=== PATIENT | male | born 1955 | race Caucasian/White ===

== ENCOUNTER 2017-10-08 14:36 | Outpatient (CLI) | payer MEDICARE, BC, OTHER ==
[2017-10-08 13:08] LABS: BASOPHILS % (AUTO) 0.7 %; EOSINOPHILS # (AUTO) 0.1 10^3/uL (0.0-0.7); EOSINOPHILS % (AUTO) 1.3 %; HCT - HEMATOCRIT 41.2 % (42.0-52.0); HGB - HEMOGLOBIN 14.1 g/dL (14.0-18.0); LYMPHOCYTES # (AUTO) 2.9 10^3/uL (1.5-3.5); LYMPHOCYTES % (AUTO) 46.4 %; MEAN CORPUSCULAR HEMOGLOBIN 31.6 pg (27.0-31.0); MEAN CORPUSCULAR HGB CONC 34.2 g/dL (32.0-36.0); MEAN CORPUSCULAR VOLUME 92.5 fL (80.0-94.0); MEAN PLATELET VOLUME 7.6 fL (7.4-11.4); MONOCYTES # (AUTO) 0.7 10^3/uL (0.0-1.0); MONOCYTES % (AUTO) 10.6 %; NEUTROPHILS # (AUTO) 2.6 10^3/uL (1.5-6.6); RED BLOOD COUNT 4.45 10^6/uL (4.70-6.10); RED CELL DISTRIBUTION WIDTH 12.5 % (12.0-15.0); UNCORRECTED WHITE BLOOD COUNT 6.3 x10^3/uL; WHITE BLOOD COUNT 6.3 x10^3/uL (4.8-10.8)
[2017-10-08 13:23] LABS: ALBUMIN/GLOBULIN RATIO 1.3 (1.0-2.2); BILIRUBIN,TOTAL 0.6 mg/dL (0.2-1.0); BUN - BLOOD UREA NITROGEN 15 mg/dL (6-20); CALCIUM 9.4 mg/dL (8.5-10.3); CARBON DIOXIDE - CO2 29 mmol/L (21-32); CHLORIDE 97 mmol/L (101-111); CHOL/HDL RATIO 4.3 (<5.0); CHOLESTEROL 258 mg/dL; CREATININE 0.8 mg/dL (0.6-1.2); GFR - MDRD 98 (>89); GLUCOSE 93 mg/dL (70-100); HDL CHOLESTEROL 60 mg/dL; LDL/HDL RATIO 2.8 (<3.6); POTASSIUM 4.1 mmol/L (3.5-5.0); SODIUM 138 mmol/L (135-145); TOTAL PROTEIN 7.6 g/dL (6.7-8.2); TRIGLYCERIDES 143 mg/dL; VLDL CHOLESTEROL 29 mg/dL
[2017-10-08 13:38] LABS: HEMOGLOBIN A1C 0.62 g/dL
== END 2017-10-08 14:37 | disposition home or self-care (01) ==
LOC: LAB.R 14:36
PROVIDERS: ATTEND Internal Medicine
DX: Z00.00 Encounter for general adult medical examination without abnormal findings (principal); R73.9 Hyperglycemia, unspecified; K21.9 Gastro-esophageal reflux disease without esophagitis; I10 Essential (primary) hypertension; E78.5 Hyperlipidemia, unspecified; Z79.899 Other long term (current) drug therapy; Z12.5 Encounter for screening for malignant neoplasm of prostate; Z72.89 Other problems related to lifestyle
CPT/HCPCS: 80053; 80061; 83036; 83721; 85025; 86803; G0103; 84153

== ENCOUNTER 2018-01-12 08:50 | Outpatient (CLI) | payer MEDICARE, BC, OTHER ==
[2018-01-12 13:41] LABS: ALT ALANINE AMINOTRANSFERASE 23 IU/L (10-60); AST ASPARTATE AMINOTRANSFERASE 19 IU/L (10-42); LDL CHOLESTEROL,DIRECT 86 mg/dL
== END 2018-01-12 08:51 | disposition home or self-care (01) ==
LOC: LAB.R 08:50
PROVIDERS: ATTEND Internal Medicine
DX: E78.5 Hyperlipidemia, unspecified (principal)
CPT/HCPCS: 83721; 84450; 84460

== ENCOUNTER 2018-10-28 13:51 | Outpatient (CLI) | payer MEDICARE, BC ==
--- NOTE | 2018-10-28 15:20 | XRAY Report ---
Reason: Right Hip Joint Pain, Trauma Procedure Date: 10/28/2018 Accession Number: [id number] / [id number] Procedure: XR - Femur 2V RT CPT Code: FULL RESULT: EXAM: RIGHT FEMUR RADIOGRAPHY EXAM DATE: 10/28/2018 02:34 PM. CLINICAL HISTORY: Right hip joint pain, trauma. COMPARISON: None. TECHNIQUE: 2 views. FINDINGS: Bones: Normal. No fracture or bone lesion. Joints: The visualized hip and knee joints are normal. No effusions. Soft Tissues: Normal. No soft tissue swelling. IMPRESSION: No fracture or dislocation. RADIA
--- NOTE | 2018-10-28 15:20 | XRAY Report ---
Reason: HIP JOINT PAIN,RIGHT Procedure Date: 10/28/2018 Accession Number: [id number] / [id number] Procedure: XR - Hip w/Pelvis 2-3V RT CPT Code: FULL RESULT: EXAM: RIGHT HIP AND PELVIS RADIOGRAPHY EXAM DATE: 10/28/2018 02:34 PM. HISTORY: Hip joint pain, right. Trauma. COMPARISONS: None. TECHNIQUE: 1 view of the pelvis and 1 view of the hip. FINDINGS: Bones: Normal. No fracture or bone lesion. Joints: The bilateral hip, pubis symphysis, and sacroiliac joints are preserved. Soft Tissues: Normal. No soft tissue swelling. IMPRESSION: No fracture or dislocation is identified. RADIA
== END 2018-10-28 13:52 | disposition home or self-care (01) ==
LOC: DI 13:51
PROVIDERS: ATTEND Physician Assistant Medical
DX: M25.551 Pain in right hip (principal)

== ENCOUNTER 2018-10-31 12:33 | Emergency (ER) | payer MEDICARE, BC, OTHER ==
[2018-10-31 12:41] VITALS: BP 164/102
--- NOTE | 2018-10-31 14:22 | ED Physician Documentation ---
History of Present Illness - Stated complaint Stated Complaint: RT HIP PX/GLF - Chief complaint Chief Complaint: Back Pain - Additonal information Additional information: hx from pt 63 male rtripped and fell and hit right hip on table approx 5 days ago has seen PMD and xrays were neg but pain is still severe and he cannot walk did not hit head no head neck chest abd pain Review of Systems Cardiac: denies: Chest pain / pressure GI: denies: Abdominal Pain Musculoskeletal: reports: Extremity pain, Joint pain (R hip lat and posterior). denies: Neck pain Neurologic: denies: Headache Endocrine: denies: Easy bruising / bleeding Immunocompromised: denies: Immunocompromised PD PAST MEDICAL HISTORY - Past Medical History Past Medical History: Yes Cardiovascular: Hypertension, High cholesterol Respiratory: None Endocrine/Autoimmune: None GI: Colon polyps : None HEENT: None Psych: Post traumatic stress disorder Musculoskeletal: Osteoarthritis, Chronic back pain, Other Derm: None - Past Surgical History General: Colonoscopy - Present Medications Home Medications: Ambulatory Orders Medication Instructions Recorded Confirmed Aspirin [Aspir 81] 81 mg PO DAILY 06/03/14 10/31/18 DULoxetine [Cymbalta] 60 mg PO DAILY 06/03/14 10/31/18 Lisinopril 10 mg PO DAILY 06/03/14 10/31/18 Meclizine HCl 25 mg ORAL DAILY PRN 06/03/14 10/31/18 Omeprazole 20 mg PO DAILY 06/03/14 10/31/18 Simvastatin 10 mg PO DAILY 06/03/14 10/31/18 Indomethacin [Indocin] 25 mg PO BIDWM PRN #14 capsule 10/31/18 Lidocaine Patch 5% [Lidoderm Patch] 1 patch TOP DAILY PRN #10 patch 10/31/18 - Allergies Allergies/Adverse Reactions: Allergies Allergy/AdvReac Type Severity Reaction Status Date / Time No Known Drug Allergies Allergy Verified 10/31/18 12:41 - Social History Does the pt smoke?: No Smoking Status: Never smoker PD ED PE NORMAL - Vitals Vital signs reviewed: Yes - HEENT HEENT: Atraumatic - Neck Neck: No bony TTP - Cardiac Cardiac: RRR - Respiratory Respiratory: No respiratory distress - Abdomen Abdomen: Non tender - Derm Derm: Normal color - Extremities Extremities: Other (TTP lateral hip and STS no ecchymosis able int int ext rotate but pain with flexion and ext, MSV intact) - Neuro Neuro: Alert and oriented X 3 Eye Opening: Spontaneous Motor: Obeys Commands Verbal: Oriented GCS Score: 15 Results - Vitals Vitals: Vital Signs - 24 hr 10/31/18 12:39 Temperature 36.2 C L Heart Rate 77 Respiratory 20 Rate Blood Pressure 164/102 H O2 Saturation 100 Oxygen O2 Source Room air - Rads (name of study) CT pelvis Radiology: See rad report (neg for fx) PD MEDICAL DECISION MAKING - ED course ED course: xray by PMD neg will CT Departure - Departure Disposition: Home, Self Care Clinical Impression: Contusion, hip Qualifiers: Encounter type: initial encounter Laterality: right Qualified Code(s): S70.01XA - Contusion of right hip, initial encounter Condition: Good Instructions: ED Contusion Hip Follow-Up: Abdiel Connor MD [Primary Care Provider] - Prescriptions: Indomethacin [Indocin] 25 mg PO BIDWM PRN #14 capsule PRN Reason: pain and inflammation Lidocaine Patch 5% [Lidoderm Patch] 1 patch TOP DAILY PRN #10 patch PRN Reason: pain Comments: Thankfully the CT scan does not show any bony injury The pain is either from a soft tissue contusion or perhaps the fall inflamed the bursae that overlies the joint. Either way I recommend indocin for inflammation and pain as well as lidocaine patches applied to the most painful spot for up to 12 hr a day. Ice wrapped in a towel and applied for up to 20 minutes at time may help as well. The pain should gradually improve over the next 2 weeks. Forms: Activity restrictions
--- NOTE | 2018-10-31 16:52 | CT Report ---
Reason: fall right hip pain neg xray Procedure Date: 10/31/2018 Accession Number: [id number] / [id number] Procedure: CT - Pelvis W/O CPT Code: FULL RESULT: EXAM: CT BONY PELVIS WITHOUT CONTRAST EXAM DATE: 10/31/2018 03:46 PM. CLINICAL HISTORY: Fall right hip pain neg xray. COMPARISON: 10/28/2018. TECHNIQUE: Thin-section axial images were acquired of the pelvis without contrast. Post-processing: Coronal and sagittal reformats. Other: None. In accordance with CT protocol optimization, one or more of the following dose reduction techniques were utilized for this exam: automated exposure control, adjustment of mA and/or KV based on patient size, or use of iterative reconstructive technique. FINDINGS: Bones: No acute fracture. No bone lesion. Mild enthesopathy at the greater trochanter. Sacroiliac Joints: Unremarkable. Joints: No dislocation. There is mild osteophyte formation of the hip joints bilaterally. Moderate lower lumbar disk degeneration. Pelvic Cavity: Unremarkable. Other: Small bilateral fat-containing inguinal hernias. IMPRESSION: No acute fracture. RADIA
[2018-10-31] MEDS ORDERED: INDOMETHACIN 25 MG CAPSULE PO STA (17:05)
[2018-10-31] MEDS ORDERED: LIDOCAINE PATCH 5% TOP STA (17:05)
== END 2018-10-31 17:21 | disposition home or self-care (01) ==
LOC: ED 12:33
DX: S70.01XA Contusion of right hip, initial encounter (principal); W01.190A Fall on same level from slipping, tripping and stumbling with subsequent striking against furniture, initial encounter; I10 Essential (primary) hypertension; E78.00 Pure hypercholesterolemia, unspecified; Z79.82 Long term (current) use of aspirin
CPT/HCPCS: 72192; 99283; A9270

== ENCOUNTER 2019-05-24 | Outpatient (CLI) | payer MEDICARE, BC | END 2019-05-24 09:54 | disposition home or self-care (01) ==

== ENCOUNTER 2020-11-03 11:01 | Outpatient (CLI) | payer MEDICARE, BC ==
--- NOTE | 2020-11-04 10:47 | Ultrasound Report ---
PROCEDURE: Testicle INDICATIONS: RT SCROTAL SWELLING W/ HYDROCELE TECHNIQUE: Real-time scanning was performed of the scrotum and testicles, with image documentation. Color and p ulse Doppler interrogation was performed of both testicles. COMPARISON: Correlation is made with overlapping portions of pelvis CT 10/31/2018. FINDINGS: Right: Testicle is normal in size at 5.1 x 3.2 x 3.3 cm, and demonstrates a cluster of intratesticul ar cysts, which measure up to 2.3 cm, and measured together. Epididymis is normal in overall size a nd demonstrates a cluster of epididymal cysts that measure up to 9 mm. There is a prominent right-si ded hydrocele which measures 7.8 x 4.2 x 5.5 cm. Overlying scrotal skin is normal in thickness. Left: Testicle is normal in size at 4.3 x 2.9 x 3.1 cm, and homogeneous in echotexture. Epididymis is normal in overall size. Epididymal cysts are seen, which measure up to 5 mm. There is a small left -sided hydrocele. Overlying scrotal skin is normal in thickness. Doppler: Color and pulse Doppler demonstrate normal and symmetric arterial flow in both testicles. No left-sided varicocele is seen. Investigation for a right varicocele was not obtained, secondary to the large right-sided hydrocele. IMPRESSION: Right-sided intratesticular cysts are seen. Prominent right-sided hydrocele. Small left-sided hydrocele. On the prior CT, bilateral fat-containing inguinal hernias can be seen. These are not investigated on the current study. Reviewed by: Livan Choudhury MD on 11/04/2020 9:46 AM [facility] Approved by: Livan Choudhury MD on 11/04/2020 9:46 AM [facility] Station ID: [id number]
== END 2020-11-03 11:02 | disposition home or self-care (01) ==
LOC: DI 11:01
PROVIDERS: ATTEND Internal Medicine
DX: N44.2 Benign cyst of testis (principal); N43.3 Hydrocele, unspecified

== ENCOUNTER 2020-11-07 08:00 | Outpatient (CLI) | payer MEDICARE, BC ==
[2020-11-07 09:46] LABS: BASOPHILS % (AUTO) 0.5 %; EOSINOPHILS # (AUTO) 0.1 10^3/uL (0.0-0.7); EOSINOPHILS % (AUTO) 1.4 %; HGB - HEMOGLOBIN 14.1 g/dL (14.0-18.0); LYMPHOCYTES # (AUTO) 2.9 10^3/uL (1.5-3.5); LYMPHOCYTES % (AUTO) 46.3 %; MEAN CORPUSCULAR HEMOGLOBIN 31.6 pg (27.0-31.0); MEAN CORPUSCULAR VOLUME 95.7 fL (80.0-94.0); MEAN PLATELET VOLUME 8.7 fL (7.4-11.4); MONOCYTES # (AUTO) 0.7 10^3/uL (0.0-1.0); MONOCYTES % (AUTO) 10.3 %; NEUTROPHILS # (AUTO) 2.6 10^3/uL (1.5-6.6); NEUTROPHILS % (AUTO) 41.5 %; PLT - PLATELET COUNT 332 10^3/uL (130-450); RED BLOOD COUNT 4.46 10^6/uL (4.70-6.10); RED CELL DISTRIBUTION WIDTH 11.9 % (12.0-15.0); WHITE BLOOD COUNT 6.3 x10^3/uL (4.8-10.8)
[2020-11-07 10:04] LABS: ALBUMIN 4.3 g/dL (3.2-5.5); ALBUMIN/GLOBULIN RATIO 1.4 (1.0-2.2); ALKALINE PHOSPHATASE 65 IU/L (42-121); ALT ALANINE AMINOTRANSFERASE 27 IU/L (10-60); AST ASPARTATE AMINOTRANSFERASE 24 IU/L (10-42); BILIRUBIN,TOTAL 1.3 mg/dL (0.2-1.0); BUN - BLOOD UREA NITROGEN 22 mg/dL (6-20); CALCIUM 9.6 mg/dL (8.5-10.3); CARBON DIOXIDE - CO2 27 mmol/L (21-32); CHLORIDE 98 mmol/L (101-111); CHOL/HDL RATIO 3.3 (<5.0); CHOLESTEROL 213 mg/dL; CREATININE 0.9 mg/dL (0.6-1.2); GLUCOSE 120 mg/dL (70-100); HDL CHOLESTEROL 65 mg/dL; LDL CHOLESTEROL,CALCULATED 126 mg/dL; LDL/HDL RATIO 1.9 (<3.6); TOTAL PROTEIN 7.4 g/dL (6.7-8.2); VLDL CHOLESTEROL 22 mg/dL
[2020-11-07 10:22] LABS: CREATININE,URINE 124.5 mg/dL
[2020-11-07 10:24] LABS: MICROALBUMIN,URINE < 0.2 mg/dL (0-300.0)
[2020-11-07 13:37] LABS: HEMOGLOBIN A1c% 6.1 % (4.27-6.07)
== END 2020-11-07 23:59 | disposition home or self-care (01) ==
LOC: LAB 08:00
PROVIDERS: ATTEND Internal Medicine
DX: I10 Essential (primary) hypertension (principal); R73.01 Impaired fasting glucose; Z12.5 Encounter for screening for malignant neoplasm of prostate
CPT/HCPCS: 36415; 80053; 80061; 82043; 82570; 83036; 84443; 85025; G0103; 83721; 84153

== ENCOUNTER 2020-11-29 09:38 | Emergency (ER) | payer BC, MEDICARE, OTHER ==
[2020-11-29] MEDS ORDERED: KETOROLAC 60 MG/2 ML VIAL IM STA (10:57)
--- NOTE | 2020-11-29 11:02 | ED Physician Documentation ---
History of Present Illness - Stated complaint Stated Complaint: BACK PX - Chief complaint Chief Complaint: Ext Problem - History obtained from History obtained from: Patient - Additonal information Additional information: Pt comes to the ED with CC of R lower back pain, radiating down his leg, after doing some heavy work a few days ago. Pt states he was sawing large logs, and that he is right-side dominant, so his R side took the brunt of the pressure. He noticed some soreness in his R lower back and buttock later that day, and this has gotten worse over the past few days. Pt states this has happened before. He states he talked with his doctor, who recommended he come in and get a shot of Toradol. Pt denies numbness or tingling. No weakness. No loss of bowel or bladder control. Review of Systems Ten Systems: 10 systems reviewed and negative Constitutional: reports: Reviewed and negative Eyes: reports: Reviewed and negative Ears: reports: Reviewed and negative Nose: reports: Reviewed and negative Throat: reports: Reviewed and negative Cardiac: reports: Reviewed and negative Respiratory: reports: Reviewed and negative GI: reports: Reviewed and negative : reports: Reviewed and negative Skin: reports: Reviewed and negative Musculoskeletal: reports: Back pain, Extremity pain Neurologic: reports: Reviewed and negative Psychiatric: reports: Reviewed and negative Endocrine: reports: Reviewed and negative Immunocompromised: reports: Reviewed and negative PD PAST MEDICAL HISTORY - Past Medical History Cardiovascular: Hypertension, High cholesterol Respiratory: None Endocrine/Autoimmune: None GI: Colon polyps : None HEENT: None Psych: Post traumatic stress disorder Musculoskeletal: Osteoarthritis, Chronic back pain, Other Derm: None - Past Surgical History Past Surgical History: Yes General: Colonoscopy - Present Medications Home Medications: Ambulatory Orders Medication Instructions Recorded Confirmed Aspirin [Aspir 81] 81 mg PO DAILY 06/03/14 11/29/20 DULoxetine [Cymbalta] 60 mg PO DAILY 06/03/14 11/29/20 Lisinopril 10 mg PO DAILY 06/03/14 11/29/20 Meclizine HCl 25 mg ORAL DAILY PRN 06/03/14 11/29/20 Omeprazole 20 mg PO DAILY 06/03/14 11/29/20 Simvastatin 10 mg PO DAILY 06/03/14 11/29/20 Lidocaine Patch 5% [Lidoderm Patch] 1 patch TOP DAILY PRN #10 patch 10/31/18 Cyclobenzaprine [Flexeril] 10 mg PO TID PRN #20 tab 11/29/20 HYDROcod/ACETAM 5/325 [Cresson 5/325] 1 - 2 ea PO Q6H PRN #15 11/29/20 Ibuprofen [Motrin] 800 mg PO Q8H PRN #30 tab 11/29/20 - Allergies Allergies/Adverse Reactions: Allergies Allergy/AdvReac Type Severity Reaction Status Date / Time No Known Drug Allergies Allergy Verified 10/31/18 12:41 - Social History Does the pt smoke?: No Smoking Status: Current some day smoker Does the pt drink ETOH?: Yes Does the pt have substance abuse?: No - Immunizations Immunizations are current?: Yes PD ED PE NORMAL - Vitals Vital signs reviewed: Yes - General General: Alert and oriented X 3, No acute distress - HEENT HEENT: Atraumatic, PERRL, EOMI, Moist mucous membranes - Neck Neck: Supple, no meningeal sign - Cardiac Cardiac: RRR, No murmur, Strong equal pulses - Respiratory Respiratory: No respiratory distress, Clear bilaterally - Abdomen Abdomen: Soft, Non tender, Non distended - Back Back: No CVA TTP, No spinal TTP, Other (mild tenderness R SI joint area.) - Derm Derm: Warm and dry - Extremities Extremities: No deformity, No tenderness to palpate, No edema - Neuro Neuro: Alert and oriented X 3 - Psych Psych: Normal mood, Normal affect Results - Vitals Vitals: Oxygen O2 Source Room air PD MEDICAL DECISION MAKING - ED course Complexity details: considered differential, d/w patient ED course: PT did not have any signs or symptoms of emergent back pain. He was treated with a dose of Toradol in the ED, and I have prescribed him medication as an outpatient for symptomatic control. We have discussed the need for follow up with PCP to discuss MRI if he is not doing any better after 2 weeks. Departure - Departure Disposition: 01 Home, Self Care Clinical Impression: Acute myofascial strain of lumbar region Qualifiers: Encounter type: initial encounter Qualified Code(s): S39.012A - Strain of muscle, fascia and tendon of lower back, initial encounter Sciatica Qualifiers: Laterality: right Qualified Code(s): M54.31 - Sciatica, right side Condition: Stable Instructions: ED Exercises Lumbar Muscles, ED Sprain Strain Lumbar Prescriptions: Cyclobenzaprine [Flexeril] 10 mg PO TID PRN #20 tab PRN Reason: Spasms Ibuprofen [Motrin] 800 mg PO Q8H PRN #30 tab PRN Reason: PAIN &/OR FEVER HYDROcod/ACETAM 5/325 [Cresson 5/325] 1 - 2 ea PO Q6H PRN #15 PRN Reason: Pain Discharge Date/Time: 11/29/20 11:21
[2020-11-29 11:21] VITALS: BP 148/92
== END 2020-11-29 11:21 | disposition home or self-care (01) ==
LOC: ED 09:38
DX: S39.012A Strain of muscle, fascia and tendon of lower back, initial encounter (principal); X50.9XXA Other and unspecified overexertion or strenuous movements or postures, initial encounter; Y93.89 Activity, other specified; M54.31 Sciatica, right side; I10 Essential (primary) hypertension; Z79.82 Long term (current) use of aspirin
CPT/HCPCS: 96372; 99283; 99284

== ENCOUNTER 2021-01-11 08:01 | Outpatient (CLI) | payer OTHER ==
--- NOTE | 2021-01-11 08:59 | Ultrasound Report ---
PROCEDURE: Aorta Screening INDICATIONS: CHRONIC CIGAR USE TECHNIQUE: Real time scanning was performed of the aorta and iliac arteries, with image documentatio n. COMPARISON: None. FINDINGS: Aorta: Proximal aortic diameter measures 3.0 x 2.9 cm. Mid-aorta measures 2.1 x 2.0 cm. Distal aor tic diameter is 1.9 x 1.7 cm. Iliac arteries: Right common iliac artery measures 1.4 x 1.4 cm. Left common iliac artery measures 1.3 x 1.4 cm. 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 Per consensus criteria, recommend follow-up imaging in 3 years. Reviewed by: Yo Arce MD on 01/11/2021 8:58 AM PDT Approved by: Yo Arce MD on 01/11/2021 8:58 AM PDT Station ID: [id number]
== END 2021-01-11 08:02 | disposition home or self-care (01) ==
LOC: DI 08:01
PROVIDERS: ATTEND Nurse Practitioner
DX: I77.811 Abdominal aortic ectasia (principal)

== ENCOUNTER 2021-10-29 10:20 | Outpatient (CLI) | payer OTHER, MEDICARE, BC ==
[2021-10-29 10:38] LABS: BASOPHILS % (AUTO) 0.5 %; EOSINOPHILS # (AUTO) 0.1 10^3/uL (0.0-0.7); HCT - HEMATOCRIT 41.3 % (42.0-52.0); HGB - HEMOGLOBIN 13.7 g/dL (14.0-18.0); LYMPHOCYTES # (AUTO) 2.6 10^3/uL (1.5-3.5); LYMPHOCYTES % (AUTO) 42.4 %; MEAN CORPUSCULAR HEMOGLOBIN 31.5 pg (27.0-31.0); MEAN CORPUSCULAR HGB CONC 33.2 g/dL (32.0-36.0); MEAN CORPUSCULAR VOLUME 94.9 fL (80.0-94.0); MEAN PLATELET VOLUME 8.6 fL (7.4-11.4); MONOCYTES # (AUTO) 0.5 10^3/uL (0.0-1.0); MONOCYTES % (AUTO) 8.9 %; NEUTROPHILS # (AUTO) 2.8 10^3/uL (1.5-6.6); NEUTROPHILS % (AUTO) 45.9 %; PLT - PLATELET COUNT 339 10^3/uL (130-450); RED BLOOD COUNT 4.35 10^6/uL (4.70-6.10); RED CELL DISTRIBUTION WIDTH 12.9 % (12.0-15.0); WHITE BLOOD COUNT 6.1 x10^3/uL (4.8-10.8)
[2021-10-29 10:49] LABS: CREATININE,URINE 184.4 mg/dL; MICROALBUM/CREATININE RATIO,UR 3.8 ug/mg (<30.0); MICROALBUMIN,URINE 0.7 mg/dL (0-300.0)
[2021-10-29 10:51] LABS: ESTIMATED AVERAGE GLUCOSE 131 mg/dL (70-100); HEMOGLOBIN A1c% 6.2 % (4.27-6.07)
[2021-10-29 10:57] LABS: ALBUMIN 4.2 g/dL (3.2-5.5); ALBUMIN/GLOBULIN RATIO 1.4 (1.0-2.2); ALKALINE PHOSPHATASE 61 IU/L (42-121); ALT ALANINE AMINOTRANSFERASE 24 IU/L (10-60); AST ASPARTATE AMINOTRANSFERASE 21 IU/L (10-42); BILIRUBIN,TOTAL 0.9 mg/dL (0.2-1.0); BUN - BLOOD UREA NITROGEN 21 mg/dL (6-20); CALCIUM 9.3 mg/dL (8.5-10.3); CARBON DIOXIDE - CO2 29 mmol/L (21-32); CHLORIDE 100 mmol/L (101-111); CHOL/HDL RATIO 3.1 (<5.0); CHOLESTEROL 214 mg/dL; CREATININE 0.8 mg/dL (0.6-1.2); GFR - MDRD 97 (>89); GLUCOSE 123 mg/dL (70-100); HDL CHOLESTEROL 69 mg/dL; LDL CHOLESTEROL,CALCULATED 128 mg/dL; LDL/HDL RATIO 1.9 (<3.6); POTASSIUM 4.3 mmol/L (3.5-5.0); SODIUM 139 mmol/L (135-145); TOTAL PROTEIN 7.1 g/dL (6.7-8.2); TRIGLYCERIDES 84 mg/dL; VLDL CHOLESTEROL 17 mg/dL
[2021-10-29 11:08] LABS: THYROID STIMULATING HORMONE 2.2 uIU/mL (0.34-5.60)
== END 2021-10-29 10:21 | disposition home or self-care (01) ==
LOC: LAB 10:20
PROVIDERS: ATTEND Internal Medicine
DX: I10 Essential (primary) hypertension (principal); R73.03 Prediabetes; Z12.5 Encounter for screening for malignant neoplasm of prostate; E78.5 Hyperlipidemia, unspecified
CPT/HCPCS: 36415; 80053; 80061; 82043; 82570; 83036; 83721; 84153; 84443; 85025

== ENCOUNTER 2021-11-30 09:31 | Outpatient (CLI) | payer OTHER, MEDICARE, BC ==
--- NOTE | 2021-11-30 11:06 | CT Report ---
PROCEDURE: CHEST WO INDICATIONS: PULMONARY NODULE TECHNIQUE: Noncontrast 1mm axial images were acquired from the pulmonary apices to the posterior costophrenic an gles. Axial 5 mm soft tissue kernel reconstructions were performed as well as 8 mm axial MIP and cor onal and sagittal 5 mm reformations. For radiation dose reduction, the following was used: automate d exposure control, adjustment of mA and/or kV according to patient size. COMPARISON: None available. FINDINGS: Image quality: Excellent. Lungs and pleura: No acute air space opacities. No pleural effusions or pneumothorax. Central and peripheral airways are patent and normal in caliber. Mediastinum: Heart size is normal. Mild coronary artery calcification. No pericardial effusion. No mediastinal adenopathy by size criteria. Thoracic aorta and central pulmonary arteries are normal i n size. Esophagus is normal in caliber. Small hiatal hernia. Bones and chest wall: No suspicious bony lesions. No vertebral body compression fractures. No axil shaq or supraclavicular adenopathy by size criteria. The thyroid is normal in size and there are no incidental findings. Abdomen: Visualized upper abdominal solid organs and bowel loops appear normal in the absence of con trast. IMPRESSION: 1. No suspicious lung nodules. The 7 mm lower lobe groundglass nodule described on the order is not v isualized, presumably resolved. 2. Mild coronary artery calcification. 3. Small hiatal hernia. Reviewed by: Thomas Ji MD on 11/30/2021 11:04 AM PST Approved by: Thomas Ji MD on 11/30/2021 11:04 AM PST Station ID: [id number]
== END 2021-11-30 09:32 | disposition home or self-care (01) ==
LOC: DI 09:31
PROVIDERS: ATTEND Nurse Practitioner
DX: I25.10 Atherosclerotic heart disease of native coronary artery without angina pectoris (principal); K46.9 Unspecified abdominal hernia without obstruction or gangrene

== ENCOUNTER 2022-09-10 09:26 | Outpatient (CLI) | payer MEDICARE, BC, OTHER ==
[2022-09-10 09:45] LABS: BASOPHILS % (AUTO) 0.5 %; EOSINOPHILS # (AUTO) 0.1 10^3/uL (0.0-0.7); EOSINOPHILS % (AUTO) 0.9 %; HCT - HEMATOCRIT 41.5 % (42.0-52.0); HGB - HEMOGLOBIN 13.8 g/dL (14.0-18.0); LYMPHOCYTES # (AUTO) 2.9 10^3/uL (1.5-3.5); LYMPHOCYTES % (AUTO) 44.8 %; MEAN CORPUSCULAR HEMOGLOBIN 31.2 pg (27.0-31.0); MEAN CORPUSCULAR HGB CONC 33.3 g/dL (32.0-36.0); MEAN CORPUSCULAR VOLUME 93.7 fL (80.0-94.0); MEAN PLATELET VOLUME 8.4 fL (7.4-11.4); MONOCYTES # (AUTO) 0.6 10^3/uL (0.0-1.0); MONOCYTES % (AUTO) 9.9 %; NEUTROPHILS # (AUTO) 2.8 10^3/uL (1.5-6.6); NEUTROPHILS % (AUTO) 43.7 %; PLT - PLATELET COUNT 344 10^3/uL (130-450); RED BLOOD COUNT 4.43 10^6/uL (4.70-6.10); RED CELL DISTRIBUTION WIDTH 11.9 % (12.0-15.0); WHITE BLOOD COUNT 6.4 x10^3/uL (4.8-10.8)
[2022-09-10 10:02] LABS: CREATININE,URINE 128.2 mg/dL; MICROALBUM/CREATININE RATIO,UR 5.5 ug/mg (<30.0); MICROALBUMIN,URINE 0.7 mg/dL (0-300.0)
[2022-09-10 10:15] LABS: ALBUMIN 4.4 g/dL (3.2-5.5); ALBUMIN/GLOBULIN RATIO 1.4 (1.0-2.2); ALKALINE PHOSPHATASE 75 IU/L (42-121); ALT ALANINE AMINOTRANSFERASE 28 IU/L (10-60); AST ASPARTATE AMINOTRANSFERASE 24 IU/L (10-42); BUN - BLOOD UREA NITROGEN 23 mg/dL (6-20); CALCIUM 9.7 mg/dL (8.5-10.3); CARBON DIOXIDE - CO2 28 mmol/L (21-32); CHLORIDE 95 mmol/L (101-111); CHOL/HDL RATIO 3.4 (<5.0); CHOLESTEROL 226 mg/dL; CREATININE 0.9 mg/dL (0.6-1.2); GFR - MDRD 84 (>89); GLUCOSE 124 mg/dL (70-100); HDL CHOLESTEROL 66 mg/dL; LDL CHOLESTEROL,CALCULATED 118 mg/dL; LDL/HDL RATIO 1.8 (<3.6); POTASSIUM 3.8 mmol/L (3.5-5.0); SODIUM 136 mmol/L (135-145); TOTAL PROTEIN 7.6 g/dL (6.7-8.2); TRIGLYCERIDES 210 mg/dL; VLDL CHOLESTEROL 42 mg/dL
[2022-09-10 10:16] LABS: THYROID STIMULATING HORMONE 2.78 uIU/mL (0.34-5.60)
[2022-09-10 10:28] LABS: ESTIMATED AVERAGE GLUCOSE 134 mg/dL (70-100); HEMOGLOBIN A1c% 6.3 % (4.27-6.07)
== END 2022-09-10 09:27 | disposition home or self-care (01) ==
LOC: LAB 09:26
PROVIDERS: ATTEND Internal Medicine
DX: I10 Essential (primary) hypertension (principal); E78.5 Hyperlipidemia, unspecified; R73.03 Prediabetes; Z13.29 Encounter for screening for other suspected endocrine disorder
CPT/HCPCS: 36415; 80053; 80061; 82043; 82570; 83036; 83721; 84443; 85025

== ENCOUNTER 2022-10-03 11:24 | Outpatient (CLI) | payer MEDICARE, BC, OTHER ==
--- NOTE | 2022-10-04 09:03 | XRAY Report ---
PROCEDURE: Shoulder 3 View RT INDICATIONS: IMPINGEMENT SYNDROME OF RIGHT SHOULDER TECHNIQUE: 3 views of the shoulder were acquired. COMPARISON: None. FINDINGS: Bones: No fractures or dislocations. No suspicious bony lesions. Visualized ribs appear intact. M ild-moderate acromioclavicular and glenohumeral joint degenerative changes. Soft tissues: No suspicious soft tissue calcifications. IMPRESSION: 1. No acute osseous abnormality. 2. Degenerative changes of the acromioclavicular and glenohumeral joints. 3. If symptoms persist, follow-up radiographs and/or CT or MRI may be helpful for further evaluation. Reviewed by: Titus Cerda MD on 10/04/2022 9:01 AM [facility] Approved by: Titus Cerda MD on 10/04/2022 9:01 AM [facility] Station ID: [id number]
== END 2022-10-03 11:25 | disposition home or self-care (01) ==
LOC: DI 11:24
PROVIDERS: ATTEND Internal Medicine
DX: M19.011 Primary osteoarthritis, right shoulder (principal)

== ENCOUNTER 2022-11-30 15:11 | Outpatient (CLI) | payer MEDICARE, BC, OTHER ==
--- NOTE | 2022-11-30 18:19 | XRAY Report ---
PROCEDURE: Knee 3 View RT INDICATIONS: DERANGEMENT OF OTHER LATERAL MENISCUS TECHNIQUE: 3 views of the right knee(s) were acquired. COMPARISON: Correlation is made with overlapping portions of right femur plain films, 10/28/2018 FINDINGS: Bones: No fractures or dislocations. No suspicious bony lesions. Age-appropriate degenerative castro es are seen. Soft tissues: No joint effusion. No suspicious soft tissue calcifications. IMPRESSION: Plain film study within normal limits for age. If it would be helpful for clinical management decision making, please consider a dedicated, schedule d knee MRI for further evaluation (assuming that there is no contraindication). Reviewed by: Livan Choudhury MD on 11/30/2022 5:18 PM [facility] Approved by: Livan Choudhury MD on 11/30/2022 5:18 PM [facility] Station ID: [id number]
== END 2022-11-30 15:12 | disposition home or self-care (01) ==
LOC: DI 15:11
PROVIDERS: ATTEND Physician Assistant Medical
DX: M23.261 Derangement of other lateral meniscus due to old tear or injury, right knee (principal)

== ENCOUNTER 2023-01-02 10:02 | Outpatient (CLI) | payer MEDICARE, BC, OTHER ==
[2023-01-02 10:24] LABS: BASOPHILS % (AUTO) 0.4 %; EOSINOPHILS # (AUTO) 0.1 10^3/uL (0.0-0.7); EOSINOPHILS % (AUTO) 1.4 %; HCT - HEMATOCRIT 43.7 % (42.0-52.0); HGB - HEMOGLOBIN 14.3 g/dL (14.0-18.0); LYMPHOCYTES # (AUTO) 2.6 10^3/uL (1.5-3.5); LYMPHOCYTES % (AUTO) 46.4 %; MEAN CORPUSCULAR HEMOGLOBIN 31.1 pg (27.0-31.0); MEAN CORPUSCULAR HGB CONC 32.7 g/dL (32.0-36.0); MEAN PLATELET VOLUME 8.2 fL (7.4-11.4); MONOCYTES # (AUTO) 0.5 10^3/uL (0.0-1.0); MONOCYTES % (AUTO) 8.9 %; NEUTROPHILS # (AUTO) 2.4 10^3/uL (1.5-6.6); NEUTROPHILS % (AUTO) 42.7 %; PLT - PLATELET COUNT 336 10^3/uL (130-450); RED CELL DISTRIBUTION WIDTH 11.7 % (12.0-15.0); WHITE BLOOD COUNT 5.5 x10^3/uL (4.8-10.8)
[2023-01-02 10:36] LABS: CREATININE,URINE 147.2 mg/dL; MICROALBUM/CREATININE RATIO,UR 6.1 ug/mg (<30.0); MICROALBUMIN,URINE 0.9 mg/dL (0-300.0)
[2023-01-02 10:42] LABS: ALBUMIN 4.3 g/dL (3.2-5.5); ALBUMIN/GLOBULIN RATIO 1.3 (1.0-2.2); ALKALINE PHOSPHATASE 71 IU/L (42-121); ALT ALANINE AMINOTRANSFERASE 26 IU/L (10-60); AST ASPARTATE AMINOTRANSFERASE 22 IU/L (10-42); BUN - BLOOD UREA NITROGEN 16 mg/dL (6-20); CALCIUM 9.5 mg/dL (8.5-10.3); CARBON DIOXIDE - CO2 28 mmol/L (21-32); CHLORIDE 99 mmol/L (101-111); CHOL/HDL RATIO 3.2 (<5.0); CHOLESTEROL 209 mg/dL; CREATININE 0.9 mg/dL (0.6-1.2); GFR - MDRD 84 (>89); GLUCOSE 132 mg/dL (70-100); HDL CHOLESTEROL 65 mg/dL; LDL CHOLESTEROL,CALCULATED 125 mg/dL; LDL/HDL RATIO 1.9 (<3.6); POTASSIUM 4.4 mmol/L (3.5-5.0); SODIUM 136 mmol/L (135-145); TOTAL PROTEIN 7.7 g/dL (6.7-8.2); TRIGLYCERIDES 93 mg/dL; VLDL CHOLESTEROL 19 mg/dL
[2023-01-02 12:22] LABS: ESTIMATED AVERAGE GLUCOSE 131 mg/dL (70-100); HEMOGLOBIN A1c% 6.2 % (4.27-6.07)
[2023-01-02 15:44] LABS: THYROID STIMULATING HORMONE 1.96 uIU/mL (0.34-5.60)
== END 2023-01-02 10:03 | disposition home or self-care (01) ==
LOC: LAB 10:02
PROVIDERS: ATTEND Internal Medicine
DX: I10 Essential (primary) hypertension (principal); R73.03 Prediabetes; E78.5 Hyperlipidemia, unspecified; G62.9 Polyneuropathy, unspecified
CPT/HCPCS: 36415; 80053; 80061; 82043; 82570; 83036; 83721; 84443; 85025

== ENCOUNTER 2023-03-12 06:49 | Outpatient (CLI) | payer MEDICARE, BC, OTHER ==
--- NOTE | 2023-03-12 14:58 | MRI Report ---
PROCEDURE: SHOULDER WO - RT INDICATIONS: IMPINGMENT SX OF RIGHT SHOULDER TECHNIQUE: Noncontrast oblique coronal T2 fast spin echo with fat saturation, oblique sagittal T1 spin echo and T2 fast spin echo with fat saturation, axial T1 spin echo and T2 fast spin echo with fat saturation t hrough the shoulder. COMPARISON: None. FINDINGS: Image quality: Excellent. Rotator cuff: Low to moderate grade articular and bursal surface partial-thickness tear involving dis dimas supraspinatus at its insertion on humeral head is seen extending to musculotendinous junction. Di stal infraspinatus tendinosis is noted. Low-grade intrasubstance partial thickness tear involving dis dimas subscapularis is seen. No full-thickness rotator cuff tendon rupture.. No significant rotator cu ff muscle atrophy on sagittal images. Bones and bursae: Moderate acromioclavicular joint and glenohumeral joint osteoarthritic changes are seen with joint space narrowing, subchondral sclerosis and marginal osteophyte formation. Small to mo derate amount of joint effusion and subacromial subdeltoid bursal fluid is noted. No gross loose bodi es. Capsule and soft tissues: There is signal abnormality and contour irregularity involving superior ant erior labrum at 12 to 2:00 position suggestive of superior anterior labral tear. The long head of the biceps tendon appears thickened with intrasubstance T2 hyperintense signal. The rotator interval ap pears normal, without fibrosis. The coracohumeral ligament is normal in thickness. IMPRESSION: 1. Low to moderate grade articular and bursal surface partial-thickness involving distal supraspinatu s extending to musculotendinous junction. Distal infraspinatus tendinosis. Low-grade intrasubstance p artial thickness tear involving distal subscapularis. No full-thickness rotator cuff tendon rupture. No significant muscle atrophy. 2. Moderate acromioclavicular joint and glenohumeral joint osteophyte is. No fracture or dislocation. Small to moderate in joint effusion and subacromial subdeltoid bursal fluid. 3. Suggestion of superior anterior labral tear at 12 to 2:00 position. 4. Proximal long head of biceps tendinosis and low-grade intrasubstance partial thickness tear. Reviewed by: Ramesh Andrade MD on 03/12/2023 2:56 PM PDT Approved by: Ramesh Andrade MD on 03/12/2023 2:56 PM PDT Station ID: [id number]
== END 2023-03-12 06:50 | disposition home or self-care (01) ==
LOC: DI 06:49
PROVIDERS: ATTEND Internal Medicine
DX: M75.111 Incomplete rotator cuff tear or rupture of right shoulder, not specified as traumatic (principal); M19.011 Primary osteoarthritis, right shoulder; M25.411 Effusion, right shoulder; S46.111A Strain of muscle, fascia and tendon of long head of biceps, right arm, initial encounter

== ENCOUNTER 2023-05-06 09:44 | Outpatient (CLI) | payer MEDICARE, BC, OTHER ==
[2023-05-06 10:26] LABS: ALBUMIN 4.5 g/dL (3.2-5.5); ALBUMIN/GLOBULIN RATIO 1.3 (1.0-2.2); ALKALINE PHOSPHATASE 66 IU/L (42-121); ALT ALANINE AMINOTRANSFERASE 31 IU/L (10-60); AST ASPARTATE AMINOTRANSFERASE 26 IU/L (10-42); BILIRUBIN,TOTAL 0.8 mg/dL (0.2-1.0); BUN - BLOOD UREA NITROGEN 18 mg/dL (6-20); CALCIUM 9.5 mg/dL (8.5-10.3); CARBON DIOXIDE - CO2 30 mmol/L (21-32); CHLORIDE 98 mmol/L (101-111); CHOL/HDL RATIO 2.6 (<5.0); CHOLESTEROL 171 mg/dL; CREATININE 0.9 mg/dL (0.6-1.2); GFR - MDRD 84 (>89); GLUCOSE 130 mg/dL (70-100); HDL CHOLESTEROL 65 mg/dL; LDL CHOLESTEROL,CALCULATED 82 mg/dL; LDL/HDL RATIO 1.3 (<3.6); POTASSIUM 4.2 mmol/L (3.5-5.0); SODIUM 136 mmol/L (135-145); TOTAL PROTEIN 7.9 g/dL (6.7-8.2); TRIGLYCERIDES 122 mg/dL; VLDL CHOLESTEROL 24 mg/dL
[2023-05-06 11:24] LABS: ESTIMATED AVERAGE GLUCOSE 140 mg/dL (70-100); HEMOGLOBIN A1c% 6.5 % (4.27-6.07)
== END 2023-05-06 09:45 | disposition home or self-care (01) ==
LOC: LAB 09:44
PROVIDERS: ATTEND Internal Medicine
DX: E78.5 Hyperlipidemia, unspecified (principal); R73.03 Prediabetes; Z12.5 Encounter for screening for malignant neoplasm of prostate
CPT/HCPCS: 36415; 80053; 80061; 83036; G0103; 83721; 84153

== ENCOUNTER 2023-09-29 11:46 | Outpatient (CLI) | payer MEDICARE, BC, OTHER ==
[2023-09-29 12:15] LABS: CALCIUM 9.7 mg/dL (8.5-10.3); CREATININE 0.9 mg/dL (0.6-1.3); POTASSIUM 4.3 mmol/L (3.5-4.5)
[2023-09-29 12:28] LABS: ESTIMATED AVERAGE GLUCOSE 143 mg/dL (70-100); HEMOGLOBIN A1c% 6.6 % (4.27-6.07)
== END 2023-09-29 11:47 | disposition home or self-care (01) ==
LOC: LAB 11:46
PROVIDERS: ATTEND Internal Medicine
DX: E11.9 Type 2 diabetes mellitus without complications (principal)
CPT/HCPCS: 36415; 80048; 83036

== ENCOUNTER 2024-02-03 11:34 | Outpatient (CLI) | payer MEDICARE, BC, OTHER ==
[2024-02-03 11:56] LABS: CREATININE 0.9 mg/dL (0.6-1.3); POTASSIUM 4.1 mmol/L (3.5-4.5)
[2024-02-03 11:59] LABS: ESTIMATED AVERAGE GLUCOSE 134 mg/dL (70-100); HEMOGLOBIN A1c% 6.3 % (4.27-6.07)
== END 2024-02-03 11:35 | disposition home or self-care (01) ==
LOC: LAB 11:34
PROVIDERS: ATTEND Internal Medicine
DX: E11.9 Type 2 diabetes mellitus without complications (principal)
CPT/HCPCS: 36415; 80048; 83036

== ENCOUNTER 2024-02-05 07:04 | Day surgery (SDC) | payer MEDICARE, BC, OTHER ==
[2024-02-05] MEDS: LACTATED RINGERS 1,000 ML IV ONE ×2 (07:10→09:11)
--- NOTE | 2024-02-05 08:17 | ANESTHESIA ---
Pre-Anesthesia VS, & Labs - Diagnosis screening exam - Procedure colonoscopy Vital Signs: Temp Pulse Resp BP Pulse Ox O2 Flow Rate 36.0 C L 71 18 169/94 H 100 02/05/24 07:10 02/05/24 07:10 02/05/24 07:10 02/05/24 07:10 02/05/24 07:10 Height: 5 ft 8 in Weight (kg): 83.6 kg Body Mass Index: 28.0 BMI Classification: Overweight - NPO Last Fluid Intake: black coffee - Lab Results Current Lab Results: Laboratory Tests 02/05/24 07:31: POC Whole Bld Glucose 109 H Lab results reviewed: Yes Home Medications and Allergies Home Medications: Ambulatory Orders Rosuvastatin Calcium [Crestor] 1 tab PO DAILY 02/04/24 Aspirin [Aspir 81] 81 mg PO DAILY 06/03/14 DULoxetine [Cymbalta] 60 mg PO DAILY 06/03/14 Lisinopril 10 mg PO DAILY 06/03/14 Omeprazole 20 mg PO DAILY 06/03/14 Rosuvastatin Calcium [Crestor] 1 tab PO DAILY 02/04/24 Allergies/Adverse Reactions: Allergies Allergy/AdvReac Type Severity Reaction Status Date / Time No Known Drug Allergies Allergy Verified 02/04/24 13:26 Anes History & Medical History - Anesthetic History Anesthesia Complications: reports: No previous complications - Medical History Cardiovascular: reports: Hypertension, High cholesterol Pulmonary: reports: None Gastrointestinal: reports: Colon polyps Urinary: reports: None Neuro: reports: None Musculoskeletal: reports: Osteoarthritis, Chronic back pain, Other Endocrine/Autoimmune: reports: None Skin: reports: None Smoking Status: Current some day smoker (cigars) Psychosocial: reports: Alcohol (2-3 drinks every 2 days) History of Cancer?: No - Surgical History General: reports: Colonoscopy Exam General: Alert, Oriented x3, Cooperative, No acute distress Dental: WNL Mouth Openin Fingerbreadth Neck Mobility: Normal Mallampati classification: III Thyromental Distance: 4-6 cm Mental/Cognitive Status: Alert/Oriented X3, Normal for patient Plan Anesthesia Type: General, Total IV Consent for Procedure(s) Verified and Reviewed: Yes Code Status: Attempt Resuscitation ASA classification: 2-Mild systemic disease Is this case an emergency?: No
--- NOTE | 2024-02-05 08:35 | HISTORY & PHYSICAL EXAMINATION ---
Chief Complaint - Chief Complaint Chief Complaint: here for colonoscopy History of Present Illness - History Obtained From Records Reviewed: yes History obtained from: pt Exam Limitations: none - History of Present Illness HPI Comment/Other: normal colonoscopy 10 years ago. no gi problems. here for colon ca screening. History - Past Medical History Cardiovascular: reports: Hypertension, High cholesterol Respiratory: reports: None Neuro: reports: None Endocrine/Autoimmune: reports: None GI: reports: Colon polyps : reports: None HEENT: reports: None Psych: reports: Post traumatic stress disorder Musculoskeletal: reports: Osteoarthritis, Chronic back pain, Other Derm: reports: None MRSA Hx?: No - Past Surgical History General: reports: Colonoscopy Meds/Allgy - Home Medications Home Medications: Ambulatory Orders Medication Instructions Recorded Confirmed Aspirin [Aspir 81] 81 mg PO DAILY 06/03/14 02/04/24 DULoxetine [Cymbalta] 60 mg PO DAILY 06/03/14 02/04/24 Lisinopril 10 mg PO DAILY 06/03/14 02/04/24 Omeprazole 20 mg PO DAILY 06/03/14 02/04/24 Rosuvastatin Calcium [Crestor] 1 tab PO DAILY 02/04/24 02/04/24 - Allergies Allergies/Adverse Reactions: Allergies Allergy/AdvReac Type Severity Reaction Status Date / Time No Known Drug Allergies Allergy Verified 02/04/24 13:26 Review of Systems - Other Findings Other Findings: 10 pt ros as above otherwise unremarkable Exam - Vital Signs Vital Signs: Vital Signs x48h Temp Pulse Resp BP Pulse Ox 02/05/24 07:10 36.0 C L 71 18 169/94 H 100 - Physical Exam General Appearance: positive: No acute distress, Alert Eyes Bilateral: positive: PERRL, EOMI ENT: positive: No signs of dehydration Neck: positive: No JVD, Trachea midline Respiratory: positive: No respiratory distress Cardiovascular: positive: Regular rate & rhythm Abdomen: positive: No distention Neurologic/Psychiatric: positive: Oriented x3 Conclusion/Plan - Problem List (1) Colon cancer screening Conclusion/Plan: plan colonoscopy. parq held and consent obtained - Lab Results Lab results reviewed: Yes
[2024-02-05] MEDS ORDERED: PROPOFOL 500 MG/50 ML 500 MG/50 ML VIAL ONE (08:43)
[2024-02-05 09:41] VITALS: BP 154/87; O2SAT 99
--- NOTE | 2024-02-05 09:51 | ANESTHESIA POST OP EVALUATION ---
Anesthesia Post Eval - Post Anesthesia Eval Vitals: Last Vital Signs Temp 36.3 C L 02/05/24 09:11 Pulse 70 02/05/24 09:36 Resp 17 02/05/24 09:36 BP 154/87 H 02/05/24 09:36 Pulse Ox 99 02/05/24 09:36 O2 Flow Rate CV Function Including HR & BP: Stable Pain Control: Satisfactory Nausea & Vomiting: Negative Mental Status: Baseline Respiratory Status: Airway Patent Hydration Status: Satisfactory Anesthesia Complications: None
== END 2024-02-05 07:05 | disposition home or self-care (01) ==
LOC: SDS 07:04
PROVIDERS: ATTEND Surgery
PROC: 0DBL8ZX Excision of Transverse Colon, Via Natural or Artificial Opening Endoscopic, Diagnostic (ICD-10-PCS; 2024-02-05)
PROC: 0DBP8ZX Excision of Rectum, Via Natural or Artificial Opening Endoscopic, Diagnostic (ICD-10-PCS; principal; 2024-02-05 08:30)
DX: Z12.11 Encounter for screening for malignant neoplasm of colon (principal); K62.1 Rectal polyp; K63.5 Polyp of colon; K57.30 Diverticulosis of large intestine without perforation or abscess without bleeding; I10 Essential (primary) hypertension; F17.290 Nicotine dependence, other tobacco product, uncomplicated
CPT/HCPCS: 45380; J7120

== ENCOUNTER 2024-04-13 08:02 | Outpatient (CLI) | payer MEDICARE, BC, OTHER ==
[2024-04-13 08:28] LABS: BASOPHILS # (AUTO) 0.1 10^3/uL (0.0-0.1); BASOPHILS % (AUTO) 0.7 %; EOSINOPHILS # (AUTO) 0.1 10^3/uL (0.0-0.7); EOSINOPHILS % (AUTO) 1.5 %; HCT - HEMATOCRIT 40.3 % (42.0-52.0); HGB - HEMOGLOBIN 13.3 g/dL (14.0-18.0); LYMPHOCYTES # (AUTO) 2.9 10^3/uL (1.5-3.5); LYMPHOCYTES % (AUTO) 38.4 %; MEAN CORPUSCULAR HEMOGLOBIN 30.7 pg (27.0-31.0); MEAN CORPUSCULAR VOLUME 93.1 fL (80.0-94.0); MEAN PLATELET VOLUME 8.5 fL (7.4-11.4); MONOCYTES # (AUTO) 0.7 10^3/uL (0.0-1.0); MONOCYTES % (AUTO) 9.3 %; NEUTROPHILS # (AUTO) 3.7 10^3/uL (1.5-6.6); NEUTROPHILS % (AUTO) 49.7 %; PLT - PLATELET COUNT 342 10^3/uL (130-450); RED BLOOD COUNT 4.33 10^6/uL (4.70-6.10); RED CELL DISTRIBUTION WIDTH 12.1 % (12.0-15.0); WHITE BLOOD COUNT 7.5 x10^3/uL (4.8-10.8)
[2024-04-13 08:47] LABS: CREATININE,URINE 116.6 mg/dL; MICROALBUM/CREATININE RATIO,UR 6.9 ug/mg (<30.0); MICROALBUMIN,URINE 0.8 mg/dL
[2024-04-13 08:49] LABS: ALBUMIN 4.5 g/dL (3.2-5.5); ALBUMIN/GLOBULIN RATIO 1.7 (1.0-2.2); ALKALINE PHOSPHATASE 65 IU/L (42-121); ALT ALANINE AMINOTRANSFERASE 18 IU/L (10-60); AST ASPARTATE AMINOTRANSFERASE 16 IU/L (10-42); BILIRUBIN,TOTAL 0.6 mg/dL (0.2-1.0); BUN - BLOOD UREA NITROGEN 17 mg/dL (6-20); CALCIUM 9.6 mg/dL (8.5-10.3); CARBON DIOXIDE - CO2 30 mmol/L (21-32); CHLORIDE 102 mmol/L (101-111); CHOL/HDL RATIO 2.7 (<5.0); CHOLESTEROL 165 mg/dL; CREATININE 0.9 mg/dL (0.6-1.3); GFR - MDRD 84 (>89); GLUCOSE 121 mg/dL (74-104); HDL CHOLESTEROL 62 mg/dL; LDL CHOLESTEROL,CALCULATED 71 mg/dL; LDL/HDL RATIO 1.1 (<3.6); POTASSIUM 4.2 mmol/L (3.5-4.5); SODIUM 137 mmol/L (135-145); TOTAL PROTEIN 7.2 g/dL (6.4-8.9); TRIGLYCERIDES 159 mg/dL (48-352); VLDL CHOLESTEROL 32 mg/dL
[2024-04-13 09:02] LABS: THYROID STIMULATING HORMONE 2.54 uIU/mL (0.34-5.60)
== END 2024-04-13 08:03 | disposition home or self-care (01) ==
LOC: LAB 08:02
PROVIDERS: ATTEND Family Medicine
DX: E11.9 Type 2 diabetes mellitus without complications (principal); N40.1 Benign prostatic hyperplasia with lower urinary tract symptoms; G62.9 Polyneuropathy, unspecified; G47.33 Obstructive sleep apnea (adult) (pediatric); F43.10 Post-traumatic stress disorder, unspecified; K21.9 Gastro-esophageal reflux disease without esophagitis; E78.5 Hyperlipidemia, unspecified; I10 Essential (primary) hypertension; Z12.5 Encounter for screening for malignant neoplasm of prostate
CPT/HCPCS: 36415; 80053; 80061; 82043; 82570; 84443; 85025; G0103; 83721; 84153